=== PATIENT | male | born 1965 | race African-American/Black ===

== ENCOUNTER 2024-12-28 16:04 | Emergency (ER) | payer BC, MEDICAID ==
[~2024-12-28] VITALS: Ht 188 cm; Wt 108.0 kg
[2024-12-28 16:15] VITALS: O2SAT 98
[2024-12-28] MEDS ORDERED: METHYLPREDNISOLONE 40MG/ML INJ IV ONE (18:15)
[2024-12-28 18:17] LABS: ADD RBC MORPHOLOGY YES; BASOPHILS % 0.6 % (0.0-2.0); EOSINOPHILS % 5.1 % (0.0-5.0); HEMATOCRIT. 28.0 % (42.0-52.0); HEMOGLOBIN. 8.8 g/dL (14.0-18.0); LYMPHOCYTES % 15.7 % (20.0-50.0); MEAN PLATELET VOLUME 8.3 fl (7.4-10.4); MONOCYTES % 7.0 % (2.0-8.0); NEUTROPHILS % 71.6 % (40.0-76.0); PLATELET 247 x1000/uL (130-400); RED BLOOD CELL COUNT 4.44 mill/uL (4.7-6.1); RED CELL DISTRIBUTION WIDTH 18.9 % (11.6-14.6)
[2024-12-28] MEDS: SODIUM CHLORIDE 0.9% 1,000 ML IV ONE (18:34)
[2024-12-28 18:36] LABS: CREATININE 1.8 mg/dL (0.6-1.3)
[2024-12-28 18:37] LABS: UREA NITROGEN BLOOD 27 mg/dL (9-23)
[2024-12-28 18:38] LABS: ASPARTATE AMINOTRANSFERASE 27 IU/L (<34)
[2024-12-28 18:39] LABS: BILIRUBIN DIRECT 0.4 mg/dL (<=3.0); BILIRUBIN TOTAL 0.7 mg/dL (0.1-1.0); PLATELET ESTIMATE NORMAL; PROTEIN TOTAL 8.4 g/dL (6.0-8.3)
[2024-12-28] MEDS: ONDANSETRON HCL 4MG/2ML INJ IV ONE (18:48)
[2024-12-28] MEDS: METHYLPREDNISOLONE SOD SUCC 125MG/2ML (ACT-O-VIAL) IV NR (18:48)
[2024-12-28] MEDS: MORPHINE SULFATE 4 MG/ML INJ (FOR IV/IM USE) IV ONE (18:49)
[2024-12-28] MEDS: KETOROLAC 15MG/ML VIAL IV ONE (18:59)
[2024-12-28 19:03] LABS: CLARITY URINE CLOUDY (CLEAR); COLOR URINE DARK YELLOW (YELLOW); GLUCOSE URINE NEGATIVE (NEGATIVE); KETONES URINE TRACE (NEGATIVE); LEUKOCYTE ESTERASE URINE NEGATIVE (NEGATIVE); NITRITE URINE NEGATIVE (NEGATIVE); OCCULT BLOOD URINE NEGATIVE (NEGATIVE); PH URINE 5.0 (4.5-8.0); PROTEIN URINE 1+ (NEGATIVE); SPECIFIC GRAVITY URINE 1.015 (1.005-1.030); UROBILINOGEN URINE 1.0 E.U./dL (0.2-1.0)
[2024-12-28 19:22] LABS: BACTERIA URINE 2+; RBC URINE 0-2 /hpf (0-2); SQUAMOUS EPITHELIAL CELL URINE 1+ /lpf (RARE/1+)
[2024-12-28] MEDS ORDERED: TRAM50TA3 MT (19:50)
[2024-12-28] MEDS ORDERED: CEPH500C2 MT (19:50)
[2024-12-28] MEDS ORDERED: METH4TAB95 MT (19:50)
[2024-12-28 20:11] VITALS: BP 143/87; PULSE 98; RESP 18; TEMP 36.6; O2SAT 96
== END 2024-12-28 20:13 | disposition home or self-care (01) ==
LOC: ER 16:04 → CMPBEDREQ 12-29 07:40
DX: M32.8 Other forms of systemic lupus erythematosus (principal); N28.9 Disorder of kidney and ureter, unspecified; M25.50 Pain in unspecified joint; I10 Essential (primary) hypertension; I51.9 Heart disease, unspecified; I48.91 Unspecified atrial fibrillation; Z79.899 Other long term (current) drug therapy
CPT/HCPCS: 80076; 80048; 81003; 83690; 85025; 36415; 71045; 93970; 93005; 96361; 96374; 96375; 99285; J1885; J2919; J2405; J2270; J7030; Z7610